=== PATIENT | female | born 1955 | race Caucasian/White ===

== ENCOUNTER 2016-11-18 08:21 | Day surgery (SDC) | payer BC ==
[2016-11-17 09:36] VITALS: BMI 29.2
[~2016-11-18 08:21] MED LIST: LACTATED RINGERS 1,000 ML IV SCH; LIDOCAINE 1% 20 ML VIAL (10MG/ML) FOR IV START INTRADERMA PRN
[2016-11-18 09:27] VITALS: RESP 16; TEMP 96.9
[2016-11-18] MEDS ORDERED: PROPOFOL 10 MG/ML 20 ML VIAL IV ONE (09:38)
--- NOTE | 2016-11-18 09:58 | P.PCN ---
Date of Procedure: 11/18/16 Procedure(s) Performed: BRIEF HISTORY: Patient is a 61-year-old pleasant white female, scheduled for an elective colonoscopy as a part of surveillance of long-standing history of ulcerative colitis diagnosed in 2004 and remains in clinical remission. PROCEDURE PERFORMED: Colonoscopy with biopsy. PREOPERATIVE DIAGNOSIS: Long-standing history of ulcerative colitis. IV sedation per Anesthesia. PROCEDURE: After informed consent was obtained, the patient, was brought into the endoscopy unit. IV sedation was administered by Anesthesia under continuous monitoring. Digital rectal examination was normal. Initially the Olympus CF- 160 flexible video colonoscope was then inserted in the rectum, gradually advanced into the cecum without any difficulty. Careful examination was performed as the scope was gradually being withdrawn. Ileocecal valve and the appendiceal orifice were visualized and appeared normal. Prep was excellent. Mucosa of the cecum, ascending colon, transverse colon, descending colon, sigmoid colon, and rectum appeared normal. Scattered sigmoid diverticulosis seen. Random biopsies were done from every 10 cm into well from the rectum to the cecum value for dysplasia. Retroflexion was performed in the rectum and no lesions were seen. The patient tolerated the procedure well. IMPRESSION: Normal-appearing colon from rectum to cecum with no evidence of colitis or colorectal neoplasia. Scattered sigmoidal reticulosis. RECOMMENDATIONS: Findings of this examination were discussed with the patient as well as a family. She was advised to follow with the biopsy results. If the biopsy does not show any evidence of dysplasia she can have a repeat colonoscopy in 2 years.
[2016-11-18 10:21] VITALS: BP 138/88; PULSE 77
== END 2016-11-18 10:39 | disposition home or self-care (01) ==
LOC: ORWHC2ENDO 08:21
PROVIDERS: ATTEND Internal Medicine Gastroenterology
DX: K51.90 Ulcerative colitis, unspecified, without complications (principal); K52.9 Noninfective gastroenteritis and colitis, unspecified; K57.30 Diverticulosis of large intestine without perforation or abscess without bleeding; I10 Essential (primary) hypertension; J44.9 Chronic obstructive pulmonary disease, unspecified; Z87.891 Personal history of nicotine dependence; M79.7 Fibromyalgia; Z79.1 Long term (current) use of non-steroidal anti-inflammatories (NSAID); Z79.899 Other long term (current) drug therapy; Z88.5 Allergy status to narcotic agent; Z88.0 Allergy status to penicillin; Z88.2 Allergy status to sulfonamides
CPT/HCPCS: 88305; 45380; J2704

== ENCOUNTER 2017-06-09 08:39 | Day surgery (SDC) | payer BC, OTHER ==
[2017-06-09 09:08] VITALS: TEMP 98
[2017-06-09] MEDS ORDERED: TRIAMCINOLONE ACETONIDE 40 MG/ML 1 ML VIAL INTRABURSA STA (09:18)
[2017-06-09 09:56] VITALS: RESP 16
[2017-06-09 10:51] VITALS: BP 136/74; PULSE 90
--- NOTE | 2017-06-09 13:57 | US ---
Ultrasound guided left Anaya's cyst aspiration and injection Date: 06/09/2017 History: 61-year-old female with swelling and pain, referred for Anaya cyst aspiration and injection. Procedure: 1. Ultrasound of the left popliteal fossa. 2. Aspiration followed by injection of Kenalog and lidocaine with ultrasound guidance. Technique: The procedure, risks, and alternatives, were discussed with the patient, who requested that marc gama. The consent form was signed, and teach-back occurred. The site/side of the procedure was marked wi th a line with participation by the patient. The accompanying paperwork was verified for consistency. A directed history and physical exam was performed prior to the procedure. Medication reconciliation was performed by ancillary personnel. A critical pause was performed with assisting personnel just p rior to the procedure and the patient's identity was confirmed using 2 identifiers. Imaging guidance was utilized to select the precise skin entry point just prior to the procedure. Targeted imaging shows a large 8.3 x 4.0 x 3.0 cm Anaya cyst. There is prominent thickened synovium a long the inferior portion of the cyst. The left popliteal fossa was prepped and draped in the usual sterile fashion and local 1% lidocaine a nesthesia was instilled. Under ultrasound guidance, an 18 gauge long needle was introduced into the Anaya's cyst. Aspiration y ielded 25 mL of clear, synovial fluid without difficulty. The cyst was seen to collapse completely wi th aspiration. However, residual thickened synovium remains. Subsequently, under ultrasound surveillance, 1 mL of Kenalog-40 was injected into the collapsed cyst followed by 3 mm of 1% lidocaine as the needle was withdrawn. The patient tolerated the procedure well. There were no immediate complications. After the procedure, the patient's condition was unchanged. Es timated blood loss was minimal. The patient was instructed on routine postprocedure precautions, incl uding monitoring for signs of infection. IMPRESSION: Successful ultrasound guided aspiration and steroid injection (40 mg Kenalog) of a complex 8.3 cm lef t Anaya cyst without complication. Following aspiration, residual thickened synovium remains around t he collapsed cyst. 25 mL of clear synovial fluid was removed.
== END 2017-06-09 10:35 | disposition home or self-care (01) ==
LOC: RADPROMAIN 08:39
PROVIDERS: ATTEND Orthopaedic Surgery
DX: M71.22 Synovial cyst of popliteal space [Baker], left knee (principal); M17.12 Unilateral primary osteoarthritis, left knee
CPT/HCPCS: 20611; J3301; 76942

== ENCOUNTER → 2019-07-20 | Outpatient (CLI) | payer OTHER | END | disposition home or self-care (01) | LOC: LABPAT 13:01 | PROVIDERS: ATTEND Orthopaedic Surgery Sports Medicine | DX: Z01.812 Encounter for preprocedural laboratory examination (principal) | CPT/HCPCS: 87070 ==

== ENCOUNTER 2019-08-02 10:23 | Observation (INO) | payer OTHER ==
[2019-07-31 16:01] VITALS: BMI 29.6
[~2019-08-02 10:23] MED LIST changes: +HYDROmorphone 0.5 MG/0.5 ML SYRINGE IVP PRN; -LACTATED RINGERS 1,000 ML IV SCH; -LIDOCAINE 1% 20 ML VIAL (10MG/ML) FOR IV START INTRADERMA PRN; +MIDAZOLAM 2 MG/2 ML VIAL IV PRN; +ONDANSETRON 4 MG/2 ML VIAL IVP ONE; +SCOPOLAMINE 1.5MG/72HR PATCH TRANSDERM ONE; +TRANEXAMIC ACID 1,000 MG in SODIUM CHLORIDE 0.9% 100 ML IVPB ONE
[2019-08-02] MEDS ORDERED: ONDANSETRON 4 MG/2 ML VIAL ONE (11:14)
[2019-08-02] MEDS ORDERED: ACETAMINOPHEN TAB 500 MG TAB ONE (11:14)
[2019-08-02] MEDS: LACTATED RINGERS 1,000 ML IV SCH (11:21)
[2019-08-02] MEDS: ONDANSETRON 4 MG/2 ML VIAL IVP ONE ×2 (11:28→16:36)
[2019-08-02] MEDS: DEXAMETHASONE SOD PHOSPHATE 10 MG/ML 1 ML VIAL IV ONE ×2 (11:28→16:37)
[2019-08-02] MEDS: GABAPENTIN 300 MG CAP PO ONE ×2 (11:29→16:36)
[2019-08-02] MEDS: ACETAMINOPHEN TAB 500 MG TAB PO ONE ×2 (11:29→16:36)
[2019-08-02] MEDS: MELOXICAM 7.5 MG TAB PO ONE ×2 (11:30→16:36)
--- NOTE | 2019-08-02 12:19 | P.ANPRN ---
Procedure Note - Anesthesia - Nerve Block Performed Left Adductor Canal Time Out Performed: Yes Date of Procedure: 08/02/19 Procedure Start Time: 11:51 Procedure Stop Time: 12:06 Location of Patient: PreOp Indication: Acute Post-Operative Pain, Requested by Surgeon (Dr Quiñonez) Sedation Type: Sedate with meaningful contact maintained Preparation: Sterile Prep, Sterile Dressing Position: Supine Catheter: Indwelling Needle Types: Pajunk Needle Gauge: 21 Ultrasound used to visualize needle placement: Yes Ultrasound used to observe medication spread: Yes Injectate: 0.5% Ropivacaine (see comment for volume) (20cc) Blood Aspirated: No Pain Paresthesia on Injection Noted: No Resistance on Injection: Normal Image Stored and Saved: Yes Events: Uneventful and Well Tolerated
[2019-08-02] MEDS ORDERED: MIDAZOLAM 2 MG/2 ML VIAL ONE (12:46)
[2019-08-02] MEDS ORDERED: fentaNYL (PF) 50 MCG/ML 2 ML AMP ONE (12:46)
[2019-08-02] MEDS ORDERED: PROPOFOL 10 MG/ML 20 ML VIAL IV ONE (12:46)
[2019-08-02] MEDS ORDERED: SODIUM CHLORIDE 0.9% 100 ML BAG ONE (12:46)
[2019-08-02] MEDS ORDERED: TRANEXAMIC ACID 1,000 MG/10 ML VIAL ONE (12:46)
[2019-08-02] MEDS ORDERED: ceFAZolin 3,000 MG in SODIUM CHLORIDE 0.9% IRRIGATIO 3,000 ML IRRIGATION ONE (12:49)
[2019-08-02] MEDS ORDERED: MAGNESIUM HYDROXIDE 2,400 MG/10 ML CUP PO PRN (12:54)
[2019-08-02] MEDS ORDERED: DIAZEPAM 5 MG TAB PO PRN (12:54)
[2019-08-02] MEDS ORDERED: NA PHOS,M-B/NA PHOS,DI-BA 133 ML ENEMA RECTAL PRN (12:54)
[2019-08-02] MEDS ORDERED: HYDROmorphone 0.5 MG/0.5 ML SYRINGE IVP PRN (12:54)
[2019-08-02] MEDS ORDERED: ONDANSETRON 4 MG/2 ML VIAL IVP PRN (12:54)
[2019-08-02] MEDS ORDERED: HYDROmorphone 1 MG/ML 1 ML SYRINGE IVP PRN (12:54)
[2019-08-02] MEDS ORDERED: HYDROcodone/APAP 5-325MG 1 EACH TAB PO PRN ×2 (12:54)
[2019-08-02] MEDS ORDERED: NALOXONE 0.4 MG/ML 1 ML VIAL IV PRN (12:54)
[2019-08-02] MEDS ORDERED: BISACODYL 10 MG SUPP RECTAL PRN (12:54)
[2019-08-02] MEDS ORDERED: hydrOXYzine PAMOATE 25 MG CAP PO PRN (12:54)
[2019-08-02] MEDS: ROPIVACAINE 246.25 MG, EPINEPHrine 0.5 MG, KETOROLAC 30 MG, cloNIDine HCL/PF 80 MCG, WA... MISCELLANE ONE ×10 (13:22→13:58)
[2019-08-02] MEDS ORDERED: ROPIVACAINE 0.2%-NS ON-Q PUMP 1,090 MG, EMPTY PAIN BALL 1 EACH MISCELLANE PRN (15:17)
--- NOTE | 2019-08-02 15:29 | XR ---
EXAMINATION TYPE: XR knee limited LT DATE OF EXAM: 08/02/2019 CLINICAL HISTORY: Postoperative evaluation Two views of the left knee are submitted. Identified are changes of total knee arthroplasty with fem oral and tibial components appearing well seated. Postsurgical soft tissue changes are noted. Align ment is anatomic.
[2019-08-02] MEDS ORDERED: FLUTICASONE 50MCG/SPRAY NASAL 16GM EA NOSTRIL PRN (18:22)
[2019-08-02] MEDS ORDERED: ALBUTEROL NEBULIZED 2.5 MG/3 ML INHALATION PRN (18:32)
[2019-08-02] MEDS ORDERED: MONTELUKAST 10 MG TAB PO SCH (21:00)
[2019-08-02] MEDS ORDERED: VENLAFAXINE HCL ER 150 MG CAP PO SCH (21:00)
[2019-08-02] MEDS ORDERED: ASPIRIN 325 MG TAB PO SCH (21:00)
[2019-08-02] MEDS ORDERED: SENNOSIDES-DOCUSATE SODIUM 1 EACH TAB PO SCH (21:00)
[2019-08-02] MEDS ORDERED: FOLIC ACID 1 MG TAB PO SCH (21:00)
[2019-08-02] MEDS: CALCIUM CARB-VIT D 500MG-200UN 1 EACH TAB PO SCH (21:23)
[2019-08-02] MEDS: MULTIVITAMINS, THERA 1 EACH TAB PO SCH (21:23)
[2019-08-02] MEDS: ASPIRIN 81 MG PO SCH (21:23)
[2019-08-02] MEDS: hydrALAZINE HCL 50 MG TAB PO SCH ×2 (21:23→22:37)
[2019-08-02] MEDS: SODIUM CHLORIDE 0.9% 1,000 ML IV SCH ×2 (21:24)
[2019-08-02] MEDS: valACYclovir HCL 1,000 MG TABLET PO SCH (21:25)
[2019-08-02] MEDS: LOSARTAN 50 MG TAB PO SCH (21:25)
[2019-08-02] MEDS: amLODIPine 5 MG TAB PO SCH (21:25)
--- NOTE | 2019-08-02 22:20 | P.CONS ---
History of Present Illness - Reason for Consult Consult date: 08/02/19 Medical management Requesting physician: Param Quiñonez - Chief Complaint Post left total knee arthroplasty, hypertension, hyperlipidemia, fibromyalg - History of Present Illness 63-year-old female one of my office patient with long-standing history of hypertension, fibromyalgia, severe osteoarthritis, seronegative rheumatoid arthritis and history of ulcerative colitis who has been suffering from severe arthritis of the left knee for the last 2 years with failure to conservative management, patient was seen orthopedic and after failure of injection and steroid along with physical therapy patient was referred for elective left total knee arthroplasty which was done today successfully with Dr. Quiñonez patient was admitted to the floor afterward she is hemodynamically stable, pain is under control, continue topical block. Review of Systems CONSTITUTIONAL: Well-developed no acute respiratory distress. EYES: No icterus sclerae, no conjunctivitis. EARS, NOSE, MOUTH, THROAT, and FACE: No sore throat, lymphadenopathy, carotid bruits or deformity. RESPIRATORY: No SOB cough or wheezes. CARDIOVASCULAR: No CP, Palpitation, PND, Orthopnea, or angina. GASTROINTESTINAL: No Abd pain, Nausea or vomiting, no Diarrhea or constipation, No GI Bleed, no distention or masses. GENITOURINARY: Negative for Hematuria or UTI, no kidney stones. INTEGUMENT/BREAST: Negative for any muscular injury with mild osteoarthritis, generalized arthralgia and myalgia... HEMATOLOGIC/LYMPHATIC: Negative for bleed or purpura. MUSCULOSKELTAL: Negative for Myalgia or arthralgia. Generalized arthralgia and myalgia. NEURLOGICAL: No LOC, Sz or syncope, blurred vision dizziness or abnormality.. BEHAVIORAL/PSYCH: Negative. ENDOCRINE: Negative. Past Medical History Past Medical History: Fibromyalgia, Hypertension, Osteoarthritis (OA), Respiratory Disorder, Skin Disorder Additional Past Medical History / Comment(s): hx ULCERATIVE COLITIS, hx HYPERACTIVE AIRWAY DISEASE, occular migraines, HERNIATED DISCS. rosacea, eczema, History of Any Multi-Drug Resistant Organisms: None Reported Past Surgical History: Orthopedic Surgery Additional Past Surgical History / Comment(s): CARPAL TUNNEL YESENIA, GANGLION CYST rt wrist , LEFT BUNIONECTOMY, arthoscopic left knee surgery, Bakers cyst drained left knee, resection of lower lip for bleeding hemangeoma. Past Anesthesia/Blood Transfusion Reactions: Motion Sickness, Postoperative Nausea & Vomiting (PONV) Past Psychological History: No Psychological Hx Reported Smoking Status: Former smoker Past Alcohol Use History: Occasional Additional Past Alcohol Use History / Comment(s): QUIT SMOKING 25 yrs ago, SMOKED LESS THAN 1 PPD., SMOKED 10-12 YEARS. Past Drug Use History: None Reported - Past Family History Mother Family Medical History: Cancer Additional Family Medical History / Comment(s): BREAST CANCER Medications and Allergies Home Medications Medication Instructions Recorded Confirmed Type Albuterol Inhaler (Mhu) [Ventolin 1 - 2 puff INHALATION Q6HR PRN 11/17/16 08/02/19 History Hfa Inhaler] Cholecalciferol [Vitamin D3] 1,000 unit PO DAILY 11/17/16 08/02/19 History Etodolac [Lodine] 400 mg PO BID 11/17/16 08/02/19 History Fluticasone Nasal [place] [Flonase 1 spray EA NOSTRIL DAILY PRN 11/17/16 08/02/19 History Nasal [place]] Folic Acid 2 mg PO HS 11/17/16 08/02/19 History Mesalamine [Lialda] 4.8 gm PO 1400 11/17/16 08/02/19 History Montelukast [Singulair] 10 mg PO HS 11/17/16 08/02/19 History Multivit with Calcium,Iron,Min 1 each PO DAILY 11/17/16 08/02/19 History [Women's Multivitamin] Venlafaxine HCl [Effexor XR] 150 mg PO HS 11/17/16 08/02/19 History hydrALAZINE HCL [Hydralazine HCl] 50 mg PO TID 11/17/16 08/02/19 History valACYclovir HCL [Valacyclovir] 1,000 mg PO DAILY 11/17/16 08/02/19 History Triamcinolone 0.025% Cream 1 applic TOPICAL DAILY 11/18/16 08/02/19 History [Kenalog 0.025% Cream] Calcium +D 1 tab PO BID 07/31/19 08/02/19 History amLODIPine BES/OLMESARTAN MED 1 tab PO QAM 07/31/19 08/02/19 History [Mary 5-40 MG] Methotrexate Inj 0.8 ml IJ FR 08/01/19 08/02/19 History Allergies Allergy/AdvReac Type Severity Reaction Status Date / Time Sulfa (Sulfonamide Allergy Severe Enlarged Verified 08/02/19 11:01 Antibiotics) Lymph Nodes, lethargy, fatigue, elevated wbc's meperidine [From Demerol] Allergy Unknown Itching Verified 08/02/19 11:01 Penicillins Allergy Unknown Unknown Verified 08/02/19 11:01 Childhood Physical Exam Vitals: Vital Signs Temp Pulse Pulse Pulse Resp BP BP 08/02/19 18:05 78 122/79 08/02/19 17:50 81 118/77 08/02/19 17:35 78 114/77 08/02/19 17:20 82 116/73 08/02/19 17:05 77 118/77 08/02/19 16:50 81 111/72 08/02/19 16:35 91 112/72 08/02/19 16:22 98.2 F 82 17 115/77 08/02/19 15:50 89 16 106/62 08/02/19 15:35 87 16 112/66 08/02/19 15:20 90 16 102/66 08/02/19 15:05 91 16 109/59 08/02/19 14:50 96.9 F L 95 16 107/72 08/02/19 12:10 72 18 131/72 08/02/19 11:18 97.4 F L 86 20 157/91 Pulse Ox 08/02/19 18:05 93 L 08/02/19 17:50 93 L 08/02/19 17:35 95 08/02/19 17:20 96 08/02/19 17:05 95 08/02/19 16:50 95 08/02/19 16:35 92 L 08/02/19 16:22 95 08/02/19 15:50 99 08/02/19 15:35 98 08/02/19 15:20 98 08/02/19 15:05 93 L 08/02/19 14:50 97 08/02/19 12:10 97 08/02/19 11:18 98 Intake and Output 08/02/19 08/02/19 08/02/19 06:59 14:59 22:59 Intake Total 851 50 Output Total 100 Balance 751 50 Intake: IV 851 50 Output: Estimated Blood Loss 100 Other: Weight 81.1 kg 81.1 kg General Appearance: Alert, cooperative, no distress, appears stated age. Neck HEENT: Supple, no lymphadenopathy, no thyroid enlargement, no carotid bruits. Lungs: Clear to auscultation without crackles or wheezes no rhonchi, no deformity. Chest Wall: Chest wall normal expansion with deep inspiration no tenderness and no deformity was found on exam, no costochondral pain or discomfort. Heart: Regular rate and rhythm, S1, S2 normal, no murmur, rub or gallop. Back: Symmetric, no curvature, ROM normal, no CVA tenderness. Abdomen: Soft, non-tender, bowel sounds active all four quadrants, no masses, no organomegaly. Extremities: Extremities normal, atraumatic, no cyanosis or edema, incision on the left knee discover with Ryne wrap at this point still have nerve block above the surgical site above the knee. Pulses: 2+ and symmetric. Skin: Skin color, texture, tugor normal, no rashes or lesions. Neurologic: Alert oriented x3 cranial nerves II through XII intact, no motor deficit, no abnormal balance or gait. Assessment and Plan Assessment: 1 post left total knee arthroplasty: Stable post surgery, continue to watch patient hemodynamic status, continue pain management and control, 2 asthma: Patient is doing well on Singulair and Ventolin resume both medication. 3 colitis: Most likely ulcerative colitis, patient has been on Lialda 4.8 g daily with no flareup lately. 4 severe arthritis mostly osteoarthritis and seronegative rheumatoid, patient has been on methotrexate injection 0.8 mL weekly which was held the week before surgery and for 1 week we'll resume medication continue folic acid with it. 5 hypertension: Continue hydralazine 50 mg 3 times a day along with amlodipine/olmesartan 5/40 mg daily blood pressure has been well controlled. 6 chronic depression: Has been on venlafaxine 150 mg at bedtime. 7 pain control: Patient has been on topical block along with hydrocodone as needed. 8 DVT prophylaxis: Knee-high YAMILEX hose, early mobilization and aspirin will be use post orthopedic surgery. 9 GI prophylaxis: Patient will be on Pepcid 20 mg daily. CODE STATUS: Full code. Dr. Quiñonez thank you much for the consult if I can be any further help to please let me know.
[2019-08-03] MEDS: HYDROmorphone 0.5 MG/0.5 ML SYRINGE IVP PRN ×2 (00:32→06:46)
[2019-08-03] MEDS: SODIUM CHLORIDE 0.9% 1,000 ML IV SCH (04:10)
[2019-08-03] MEDS: LACTATED RINGERS 1,000 ML IV SCH (06:46)
[2019-08-03 07:24] VITALS: BP 127/82; PULSE 91; RESP 16; TEMP 98.5
[2019-08-03] MEDS: hydrALAZINE HCL 50 MG TAB PO SCH (08:04)
[2019-08-03] MEDS: ASPIRIN 81 MG PO SCH (08:04)
[2019-08-03] MEDS: MULTIVITAMINS, THERA 1 EACH TAB PO SCH (08:04)
[2019-08-03] MEDS: LOSARTAN 50 MG TAB PO SCH (08:04)
[2019-08-03] MEDS: CALCIUM CARB-VIT D 500MG-200UN 1 EACH TAB PO SCH (08:04)
[2019-08-03] MEDS: amLODIPine 5 MG TAB PO SCH (08:04)
[2019-08-03] MEDS: valACYclovir HCL 1,000 MG TABLET PO SCH (08:07)
--- NOTE | 2019-08-03 08:29 | P.PN ---
Progress Note - Text Progress Note Date: 08/03/19 (6:30 AM) Patient was seen at bedside at 6:30 AM. Patient is postop day 1 from left total knee replacement with adductor canal catheter placed for pain . Ropivacaine 0.2% infusion running at 8 ml per hour. VAS score is 5/10. Patient denies side effects. Lower extremity sensation and motor function is intact. Patient has ambulated. Dressing clean dry and intact over catheter site
--- NOTE | 2019-08-03 08:35 | OP ---
OPERATIVE REPORT PROCEDURE: 08/02/2019. SURGEON: Param Quiñonez MD. ASPHALT DAUBER: Alysia Cornell. PREOPERATIVE DIAGNOSIS: Left knee osteoarthrosis. POSTOP DIAGNOSIS: Left knee osteoarthrosis. OPERATION: Operation left total knee arthroplasty. ANESTHESIA: Spinal sedation. ESTIMATED BLOOD LOSS: 100 mL. TOURNIQUET TIME: 51 minutes at 250 mmHg. COMPLICATIONS: None apparent. DRAINS: None. DISPOSITION: Postanesthesia care unit. INDICATIONS: Rebecca is a very pleasant 63-year-old female with longstanding history of left knee pain. History and physical examination are consist with advanced left knee osteoarthrosis. She has been through significant nonoperative management up to this point. Further treatment options were discussed and she decided to go for the left total knee arthroplasty. The risks of procedure were discussed with her in detail. These risks include, but are not limited to risk of infection, nerve damage, bleeding, pain, and a small risk of deep vein thrombosis which could lead to fatal pulmonary embolism. There is also risk of loosening of the implant which could require revision operation. The patient understands these risks. All of her questions were answered to her satisfaction. Appropriate informed consent was obtained. DESCRIPTION OF PROCEDURE: The patient identified in the preoperative holding area. Surgical sites marked by both the patient and myself. She was given 2 g of Ancef IV for prophylactic purposes. She was then transferred to the operative suite. She was placed supine on the operative table. A spinal anesthetic was then administered and dosed per the anesthesia without apparent complication. Examination under anesthesia was then performed. The patient was 2-3 degrees shy of full extension. She had 100 degrees of flexion. The medial collateral ligament, lateral collateral ligament posterior cruciate ligaments were stable. Tourniquet was then placed high on the left upper thigh well-padded in preparation for surgery. The patient's left lower extremity was then prepped and draped in usual sterile fashion. Standard surgical pause undertaken to ensure that we were operating the correct site and that appropriate preop antibiotics were given. All staff in the room in agreement we proceeded. The outlines of the patella marked surgical pen. A planned 12 cm vertical incision centered over the patella was marked surgical pen. Leg was exsanguinated with an Esmarch dressing. The knee was then flexed and tourniquet inflated to 250 mmHg. The total tourniquet time for the procedure was 51 minutes. Incision and incision were then made with a 10 blade scalpel. Dissection carried down sharply overlying fascia. Great care was taken to minimize the skin flaps. The knee was then exposed using a standard medial parapatellar approach. A small cuff of quadriceps tendon was then left for suturing. She was in a bit of valgus preoperatively. A very minimal medial release was then made. This was done just enough to place the retractors medially. The medial meniscus was then excised as well. The lateral meniscus was also released anteriorly. The leg was then externally rotated. The patella was everted. The knee was flexed. Retractors were then placed to protect the collateral ligaments. I then proceeded to remove the infrapatellar fat pad. This excised sharply tangentially with the fibers of the patellar tendon. I then proceeded to remove the peripheral osteophytes. This was done with a rongeur. I then proceeded with the distal femoral resection. She did have near full extension. A planned 9 mm resection was then done. The femoral canal was then entered in midline of the femur. Approximately 10 mm anterior to the origin of the posterior cruciate ligament. The alfredito was then advanced on the center of the femur and placed intramedullary. Based on the preoperative radiographs, the angle between the anatomic and mechanical axis of the femur was approximately 4-5 degrees. The valgus angle of this femoral cutting guide was then set at 4 degrees for the left knee. This femoral cutting guide was then advanced over the inserted intramedullary alfredito. This was seated firmly against the femur. I then, as mentioned, planned to take 9 mm off the distal femur. The cutting block was then secured onto the femur with pins. The jig was removed femoral cut was made through the slot of the block. The pins then removed this femoral cutting block was removed. The accuracy of the distal femoral cuts was checked with 2 flat bars. I then proceed with femoral sizing. Posterior referencing sizing guide was held firmly against the resected distal surface of the femur. Posterior condyles were resting on the posterior plane of the guide. The sizing stylus was then placed onto the anterior femur. The size was measured as a size 7. I then assessed for femoral rotation. The plan was for 3 degrees of external rotation. Three degrees of external rotation was placed onto the jig. These holes were then marked. I then confirmed the rotation by 3 separate methods. This done using the epicondylar axis as well as Whitesides line and posterior referencing. It was deemed that the external rotation was proper. I then went forward placing the femoral cutting block. This was placed over the previously placed pin holes. The Jose J wing was then placed on the anterior slots to ensure that we would not notch the anterior femur with the anterior femoral cut. I then proceed with the anterior femoral cut. This was flush with the anterior cortex of the femur. Posterior cuts were then made followed by the anterior chamfer cut, then the posterior chamfer cut. The cutting block was then removed for throughout the resection the collateral ligaments were protected with retractors. I then placed a trial size 7 femur. It was slightly wide mediolateral but fit flush with the distal end of the femur. The drill holes were then made. I then proceed with tibial cut. I planned for cruciate-retaining knee. The guide was placed in separate varus valgus and for slope. Height was set for approximate 2 mm resection from the lateral tibial plateau which was the lower side. Having the alignment and the amount of resection. The cutting block was then pinned to the proximal tibia. The alignment alfredito was removed. Proximal tibia was resected with a reciprocating saw. Again this was done with retractors protecting the collateral ligaments as well as the posterior cruciate ligament. I then proceeded to evaluate the flexion extension gaps. A 10 mm block was then placed. The flexion-extension gaps were equal. I then proceeded with resection of posterior osteophytes. She had very minimal posterior osteophytes. This was done using a curved osteotome. This resected the posterior osteophytes and posterior capsule stripping was done off the posterior aspect of the femur. The osteophytes were then removed. I then proceeded with resection of the patella. The thickness of the patella was measured using the caliper. The thickness was 22 mm. The thickness of the anticipated patellar dome was taken into account. Resection was then performed and confirmed to be equal in 4 quadrants using a caliper. Approximately 14 mm of bone remained after dissection. A 29 x 8 standard patellar trial was then placed. The holes were drilled. The trial was then placed. I then proceed with sizing tibial plate. A size D tibial plate fit very nicely. I then placed the trial femur the tibial tray and patellar button. A 10 mm trial tibial insert was also placed. The components fit very nicely. She had full extension and flexion. The extension and flexion gaps were equal and stable to both varus and valgus stress. The patella tracked appropriately. Tibial tray rotation was then marked with a Bovie. This was externally rotated properly. I then proceed with tibial preparation. First, the femoral holes and removed femoral component. The tibial tray was then set for proper external rotation as well as mediolateral placement of the tibia. It was then pinned into place. I proceeded to proceed with punching the keel. I then decided to proceed with cementing of all of our components. The knee was then was thoroughly irrigated with sterile saline solution via pulse lavage. The lateral geniculate artery was identified and cauterized. All blood was removed from the bone of the tibia femur and patella with pulse lavage. Then proceeded with cementing. PACKS: Two packs of antibiotic bone cement prepared on the back table by the certified surgical first assistant. I then proceed with cementing the tibia 1st. Cement was impacted in the keel as well as deeply seated into the bone. A second coat of cement was then placed. The tibia was then impacted into place. Excess cement was removed with Marco's and Joker's. I then proceed with cementing the femoral component. Femoral clone was also cemented using standard technique. Excess cement was removed. A 10 mm trial insert was then placed into the knee. Brought into full extension with a constant axial load placed until the cement had hardened. The patellar component was then cemented. This held firmly compressed with a compressive device until the cement had dried. When the cement had dried, the knee was taken out of extension. All excess cement was removed from around the prosthesis. I then trailed the knee with a 10 mm insert. The flexion-extension gaps were appropriate. The knee was stable. It came into full extension. I decided to go for the 10 mm cross-linked cruciate-retaining tibial insert. Polyethylene was then placed on the tibial tray and locked into place. The knee was then reduced. The knee was again further irrigated with sterile saline solution with antibiotic added. The tourniquet was then deflated. Total tourniquet time for the procedure was 51 minutes at 250 mmHg. Final components were Gallito Persona size 7 narrow cruciate-retaining femoral component, size D tibial tray, 10 mm medial congruent cruciate-retaining polyethylene insert, and a 29 x 8 mm patella. I then proceeded with closure. Again, the knee was thoroughly irrigated. The quadriceps tendon and medial retinaculum were reapproximated with #2 Ethibond suture. The extensor mechanism was then closed with a running #2 Quill suture. Subcutaneous tissues were then closed with 2-0 Vicryl interrupted suture. The skin was closed with a running 3-0 Quill suture. Dermabond was applied to the incision. Sterile compressive dressings were then applied. All sponge and needle counts were deemed correct prior to closure. The patient tolerated procedure without apparent complication. She was transferred recovery room in stable. CONDITION: End dictation thank you. MMODL / IJN: [id number] /
[2019-08-03] MEDS ORDERED: traMADol 50 MG TAB PO PRN ×2 (08:53)
[2019-08-03] MEDS ORDERED: MELOXICAM 7.5 MG TAB PO SCH (09:00)
[2019-08-03] MEDS ORDERED: CHOLECALCIFEROL 1,000 UNIT TAB PO SCH (09:00)
[2019-08-03 10:15] LABS: Basophils % (A) 0 %; Eosinophils # (A) 0.1 k/uL (0-0.7); Eosinophils % (A) 1 %; HCT 32.7 % (34.0-46.0); HGB 10.3 gm/dL (11.4-16.0); Lymphocytes # (A) 1.6 k/uL (1.0-4.8); Lymphocytes % (A) 19 %; MCH 30.9 pg (25.0-35.0); MCHC 31.6 g/dL (31.0-37.0); MCV 97.9 fL (80.0-100.0); Monocytes # (A) 0.6 k/uL (0-1.0); Monocytes % (A) 7 %; Neutrophils # (A) 6.1 k/uL (1.3-7.7); Neutrophils % (A) 71 %; Platelet Count 262 k/uL (150-450); RBC 3.34 m/uL (3.80-5.40); RDW 13.9 % (11.5-15.5); WBC 8.7 k/uL (3.8-10.6)
--- NOTE | 2019-08-03 12:09 | P.PN ---
Subjective Progress Note Date: 08/03/19 63-year-old female one of my office patient with long-standing history of hypertension, fibromyalgia, severe osteoarthritis, seronegative rheumatoid arthritis and history of ulcerative colitis who has been suffering from severe arthritis of the left knee for the last 2 years with failure to conservative m anagement, patient was seen orthopedic and after failure of injection and steroid along with physical therapy patient was referred for elective left total knee arthroplasty which was done today successfully with Dr. Quiñonez patient was admitted to the floor afterward she is hemodynamically stable, pain is under control, continue topical block. 08/02: Patient is seen today in follow-up. She has had no postop complications. She does state that she is very tired and did not sleep during the night. Pain to the left knee is controlled. Patient's been instructed to hold methotrexate for one week. Discharge plan is to return home. She has been afebrile, heart rate 91, blood pressure 127/82, pulse ox 96% on room air. Hemoglobin 10.3. Patient is medically cleared for discharge. Review of Systems CONSTITUTIONAL: Well-developed no acute respiratory distress. EYES: No icterus sclerae, no conjunctivitis. EARS, NOSE, MOUTH, THROAT, and FACE: No sore throat, lymphadenopathy, carotid bruits or deformity. RESPIRATORY: No SOB cough or wheezes. CARDIOVASCULAR: No CP, Palpitation, PND, Orthopnea, or angina. GASTROINTESTINAL: No Abd pain, Nausea or vomiting, no Diarrhea or constipation, No GI Bleed, no distention or masses. GENITOURINARY: Negative for Hematuria or UTI, no kidney stones. INTEGUMENT/BREAST: Negative for any muscular injury with mild osteoarthritis, generalized arthralgia and myalgia... HEMATOLOGIC/LYMPHATIC: Negative for bleed or purpura. MUSCULOSKELTAL: Negative for Myalgia or arthralgia. Generalized arthralgia and myalgia. NEURLOGICAL: No LOC, Sz or syncope, blurred vision dizziness or abnormality.. BEHAVIORAL/PSYCH: Negative. ENDOCRINE: Negative. Physical Examination General Appearance: Alert, cooperative, no distress, appears stated age. Neck HEENT: Supple, no lymphadenopathy, no thyroid enlargement, no carotid bruits. Lungs: Clear to auscultation without crackles or wheezes no rhonchi, no deform ity. Chest Wall: Chest wall normal expansion with deep inspiration no tenderness and no deformity was found on exam, no costochondral pain or discomfort. Heart: Regular rate and rhythm, S1, S2 normal, no murmur, rub or gallop. Back: Symmetric, no curvature, ROM normal, no CVA tenderness. Abdomen: Soft, non-tender, bowel sounds active all four quadrants, no masses, no organomegaly. Extremities: Extremities normal, atraumatic, no cyanosis or edema, incision on the left knee discover with Ryne wrap at this point still have nerve block above the surgical site above the knee. Pulses: 2+ and symmetric. Skin: Skin color, texture, tugor normal, no rashes or lesions. Neurologic: Alert oriented x3 cranial nerves II through XII intact, no motor deficit, no abnormal balance or gait. Assessment and Plan 1 post left total knee arthroplasty, postop day #1. Continue current pain management, PT and OT, incentive spirometry and aspirin for DVT prophylaxis. 2 asthma: Patient is doing well on Singulair and Ventolin resume both medication. 3 colitis: Most likely ulcerative colitis, patient has been on Lialda 4.8 g daily with no flareup lately. 4 severe arthritis mostly osteoarthritis and seronegative rheumatoid, patient has been on methotrexate injection 0.8 mL weekly which was held the week before surgery and for 1 week we'll resume medication continue folic acid with it. 5 hypertension: Continue hydralazine 50 mg 3 times a day along with amlodipine/olmesartan 5/40 mg daily blood pressure has been well controlled. 6 chronic depression: Has been on venlafaxine 150 mg at bedtime. 7 pain control: Patient has been on topical block along with hydrocodone as needed. 8 DVT prophylaxis: Knee-high YAMILEX hose, early mobilization and aspirin will be use post orthopedic surgery. 9 GI prophylaxis: Patient will be on Pepcid 20 mg daily. CODE STATUS: Full code. Discharge plan: Home with [facility] Impression and plan of care have been directed as dictated by the signing physician. Keisha Wise nurse practitioner acting as scribe for signing orlando hackett. Objective - Vital Signs Vital signs: Vital Signs Temp 98.5 F 08/03/19 07:00 Pulse 91 08/03/19 07:00 Resp 16 08/03/19 07:00 BP 127/82 08/03/19 07:00 Pulse Ox 96 08/03/19 07:00 Intake & Output 08/02/19 08/03/19 08/03/19 18:59 06:59 18:59 Intake Total 901 120 Output Total 100 Balance 801 120 Weight 81.1 kg Intake: IV 901 Oral 120 Output: Estimated Blood Loss 100 Other: Voiding Method Toilet # Voids 2 - Labs CBC & Chem 7: 08/03/19 08:58
--- NOTE | 2019-08-03 12:35 | P.DS ---
Providers Date of admission: 08/03/19 08:17 Expected date of discharge: 08/03/19 Attending physician: Param Quiñonez Consults: 08/02/19 12:54 Consult Physician Routine Consulting Provider: Jaiden Saunders Reason/Comments: medical management Do you want consulting provider notified?: Yes Primary care physician: Jaiden Saunders - Discharge Diagnosis(es) (1) Osteoarthritis of left knee Current Visit: Yes Status: Acute (2) S/P total knee arthroplasty Current Visit: Yes Status: Acute Hospital Course: This is a 63-year-old female with known history of degenerative arthritis of the left knee. The patient presents for evaluation. After discussion and consideration patient elects to proceed with total knee arthroplasty. The patient is seen preoperatively by Dr. Quiñonez and medically cleared for surgery by their primary care physician. Patient is admitted to [facility] on 08/02/2019 for total knee arthroplasty. The procedures performed without complication or sequelae. The patient is doing well postoperatively. Labs and vital signs are stable on day of discharge. On day of discharge patient's knee incision is healing well. There is minimal erythema. There is no drainage noted at this time. There is minimal soft tissue swelling to the knee. Patient has full foot and ankle motion without difficulty or pain. Calf is soft and nontender to palpation. Neurovascular status to the left lower extremity is intact. Patient is discharged home in good condition. Opioid start talking form is reviewed and signed at patient bedside. Please see med rec for accurate list of home medications. Plan - Discharge Summary Discharge Rx Participant: Yes New Discharge Prescriptions: New Aspirin [Adult Low Dose Aspirin EC] 81 mg PO BID 30 Days #60 tablet.dr Erwin [Senokot] 2 tab PO DAILY PRN #60 tablet PRN Reason: Constipation traMADol HCl [Ultram] 1 - 2 tab PO Q6H PRN #45 tab PRN Reason: Pain Continue Fluticasone Nasal [place] [Flonase Nasal [place]] 1 spray EA NOSTRIL DAILY PRN PRN Reason: Sinus Symptoms Cholecalciferol [Vitamin D3 (25 Mcg = 1000 Iu)] 1,000 unit PO DAILY Albuterol Inhaler (Mhu) [Ventolin Hfa Inhaler (Mhu)] 1 - 2 puff INHALATION Q6HR PRN PRN Reason: Shortness Of Breath valACYclovir HCL [Valacyclovir] 1,000 mg PO DAILY Montelukast [Singulair] 10 mg PO HS Folic Acid 2 mg PO HS Etodolac [Lodine] 400 mg PO BID hydrALAZINE HCL 50 mg PO TID Venlafaxine HCl [Effexor XR] 150 mg PO HS Multivit with Calcium,Iron,Min [Women's Multivitamin] 1 each PO DAILY Mesalamine [Lialda] 4.8 gm PO 1400 Triamcinolone 0.025% Cream [Kenalog 0.025% Cream] 1 applic TOPICAL DAILY amLODIPine BES/OLMESARTAN MED [Mary 5-40 MG] 1 tab PO QAM Calcium +D 1 tab PO BID Methotrexate Inj 0.8 ml IJ FR #0 Discharge Medication List Albuterol Inhaler (Mhu) [Ventolin Hfa Inhaler (Mhu)] 1 - 2 puff INHALATION Q6HR PRN 11/17/16 [History] Cholecalciferol [Vitamin D3 (25 Mcg = 1000 Iu)] 1,000 unit PO DAILY 11/17/16 [History] Etodolac [Lodine] 400 mg PO BID 11/17/16 [History] Fluticasone Nasal [place] [Flonase Nasal [place]] 1 spray EA NOSTRIL DAILY PRN 11/17/16 [History] Folic Acid 2 mg PO HS 11/17/16 [History] Mesalamine [Lialda] 4.8 gm PO 1400 11/17/16 [History] Montelukast [Singulair] 10 mg PO HS 11/17/16 [History] Multivit with Calcium,Iron,Min [Women's Multivitamin] 1 each PO DAILY 11/17/16 [History] Venlafaxine HCl [Effexor XR] 150 mg PO HS 11/17/16 [History] hydrALAZINE HCL 50 mg PO TID 11/17/16 [History] valACYclovir HCL [Valacyclovir] 1,000 mg PO DAILY 11/17/16 [History] Triamcinolone 0.025% Cream [Kenalog 0.025% Cream] 1 applic TOPICAL DAILY 11/18/16 [History] Calcium +D 1 tab PO BID 07/31/19 [History] amLODIPine BES/OLMESARTAN MED [Mary 5-40 MG] 1 tab PO QAM 07/31/19 [History] Aspirin [Adult Low Dose Aspirin EC] 81 mg PO BID 30 Days #60 tablet. 08/03/19 [Rx] Methotrexate Inj 0.8 ml IJ FR #0 08/03/19 [Rx] Sennosides [Senokot] 2 tab PO DAILY PRN #60 tablet 08/03/19 [Rx] traMADol HCl [Ultram] 1 - 2 tab PO Q6H PRN #45 tab 08/03/19 [Rx] Follow up Appointment(s)/Referral(s): Jaiden Saunders MD [Primary Care Provider] - 08/07/19 11:00 am (Your appointment will be with the SUPERVISOR FRAME ASSEMBLY) [facility], [NON-STAFF] - Param Quiñonez MD [STAFF PHYSICIAN] - 08/09/19 3:00 pm Patient Instructions/Handouts: *Surgery [facility] - On-Q Pain Pump Discharge Instructions, Knee Replacement (DC) Activity/Diet/Wound Care/Special Instructions: Weightbearing as tolerated with a walker. Daily dressing changes, keep incision clean and dry. May shower in 24-48 hrs if no drainage from incision. Recommend use of compression stockings daily until follow up to help prevent swelling and blood clots. May remove at night before sleeping. Please call [facility] with questions or concerns [phone]. Discharge Disposition: HOME WITH HOME HEALTH SERVICES
[2019-08-03] MEDS ORDERED: BALSALAZIDE DISODIUM 750 MG CAPSULE PO SCH (16:00)
== END 2019-08-03 13:15 | disposition home health service (06) ==
LOC: OR 10:23 → 4SSUR 14:37 → OR 08-03 08:17
PROVIDERS: ADMIT Orthopaedic Surgery Sports Medicine; ATTEND Orthopaedic Surgery Sports Medicine
DX: M17.12 Unilateral primary osteoarthritis, left knee (principal); M21.062 Valgus deformity, not elsewhere classified, left knee; M25.762 Osteophyte, left knee; Z87.891 Personal history of nicotine dependence; I10 Essential (primary) hypertension; E78.5 Hyperlipidemia, unspecified; M79.7 Fibromyalgia; L71.9 Rosacea, unspecified; L30.9 Dermatitis, unspecified; R63.5 Abnormal weight gain; M06.00 Rheumatoid arthritis without rheumatoid factor, unspecified site; G43.809 Other migraine, not intractable, without status migrainosus; Z80.3 Family history of malignant neoplasm of breast; J45.909 Unspecified asthma, uncomplicated; K51.90 Ulcerative colitis, unspecified, without complications; F32.9 Major depressive disorder, single episode, unspecified; Z87.19 Personal history of other diseases of the digestive system; L98.9 Disorder of the skin and subcutaneous tissue, unspecified; Z98.890 Other specified postprocedural states; Z83.3 Family history of diabetes mellitus; Z82.49 Family history of ischemic heart disease and other diseases of the circulatory system; I11.9 Hypertensive heart disease without heart failure; Z79.899 Other long term (current) drug therapy; Z88.5 Allergy status to narcotic agent; Z88.0 Allergy status to penicillin; Z88.2 Allergy status to sulfonamides
CPT/HCPCS: 27447; 97110; 97161; 64448; 76942; 85025; 88300; 73560; G0378; C1776; J2250; J0171; J1100; J0690 ×3; J2405; J3010; J1885; J2795 ×2; J2704; J0735; J1170 ×2

== ENCOUNTER 2022-12-11 13:47 | Day surgery (SDC) | payer OTHER ==
[2022-12-10 10:19] VITALS: BMI 30.9
[~2022-12-11 13:47] MED LIST changes: -HYDROmorphone 0.5 MG/0.5 ML SYRINGE IVP PRN; +LACTATED RINGERS 1,000 ML IV SCH; -MIDAZOLAM 2 MG/2 ML VIAL IV PRN; -ONDANSETRON 4 MG/2 ML VIAL IVP ONE; -SCOPOLAMINE 1.5MG/72HR PATCH TRANSDERM ONE; -TRANEXAMIC ACID 1,000 MG in SODIUM CHLORIDE 0.9% 100 ML IVPB ONE
[2022-12-11 14:53] VITALS: TEMP 98
[2022-12-11] MEDS ORDERED: PROPOFOL 10 MG/ML 20 ML VIAL IV ONE (16:51)
--- NOTE | 2022-12-11 17:06 | P.PCN ---
Date of Procedure: 12/11/22 Procedure(s) Performed: BRIEF HISTORY: Patient is a 66-year-old pleasant female scheduled for an elective colonoscopy as a part of surveillance of long-standing history of ulcerative colitis diagnosed in 2004. She is in clinical remission. PROCEDURE PERFORMED: Colonoscopy with random biopsy. PREOPERATIVE DIAGNOSIS: Long-standing history of ulcerative colitis. IV sedation per Anesthesia. PROCEDURE: After informed consent was obtained, the patient, was brought into the endoscopy unit. IV sedation was administered by Anesthesia under continuous monitoring. Digital rectal examination was normal. Initially the Olympus CF-160 flexible video colonoscope was then inserted in the rectum, gradually advanced into the cecum without any difficulty. Careful examination was performed as the scope was gradually being withdrawn. Ileocecal valve and the appendiceal orifice were visualized and appeared normal. Prep was excellent. Mucosa of the cecum, ascending colon, transverse colon, descending colon, sigmoid colon, and rectum appeared normal. Biopsies were done from cecum to rectum at every 10 cm into well. Scattered sigmoid diverticulosis seen. Retroflexion was performed in the rectum and no lesions were seen. The patient tolerated the procedure well. IMPRESSION: Normal-appearing colon from rectum to cecum no evidence of active colitis or colorectal neoplasia . RECOMMENDATIONS: Findings of this examination were discussed with the patient as well as a family. She was advised to follow with the biopsy sites. If the biopsy does not show any evidence of dysplasia, she can have a repeat colonoscopy in 2 years..
[2022-12-11 17:23] VITALS: RESP 16
[2022-12-11 17:44] VITALS: BP 151/83; PULSE 89
== END 2022-12-11 17:47 | disposition home or self-care (01) ==
LOC: ORWHC2ENDO 13:47
PROVIDERS: ATTEND Internal Medicine Gastroenterology
DX: K63.5 Polyp of colon (principal); K51.90 Ulcerative colitis, unspecified, without complications; I10 Essential (primary) hypertension; I20.9 Angina pectoris, unspecified; Z88.2 Allergy status to sulfonamides; Z88.0 Allergy status to penicillin; Z79.899 Other long term (current) drug therapy
CPT/HCPCS: 88305; 45380; J2704

== ENCOUNTER → 2023-10-28 | Outpatient (CLI) | payer MEDICARE ==
--- NOTE | 2023-10-31 15:18 | MM ---
Reason for Exam: Screening (asymptomatic). Last mammogram was performed 1 year(s) and 8 month(s) ago. Patient History: Menarche at age 14. Patient has no children. Postmenopausal. Patient used Estrogen for 3 years. Patient used Progesterone for 3 years. Excisional Biopsy on the Right side. Mother had breast cancer, age 79. Risk Values: Vero 5 year model risk: 3.9%. NCI Lifetime model risk: 13.0%. Prior Study Comparison: 01/29/2004 Left Special View Mammogram, [facility] WITH [facility]. 09/21/2019 Bilateral MG screening mammo w CAD - 2, Unknown. 02/17/2022 Bilateral MG screening mammo w CAD - 2, Unknown. Tissue Density: The breasts are heterogeneously dense, which may obscure small masses. Findings: Analyzed By CAD. The pattern is symmetrical. There is a coarse calcification within the left breast. Smaller coarse calcifications within the left breast. Some punctate calcifications are present bilaterally. No suspicious groups of microcalcifications, spiculated or lobular masses, architectural distortion or other secondary signs of malignancy are mammographically apparent. Overall Assessment: Benign, BI-RAD 2 Management: Screening Mammogram of both breasts in 1 year. A negative mammogram report should not preclude additional follow up of suspicious palpable abnormalities. Patient should continue monthly self breast exam. A clinical breast exam by your physician is recommended on an annual basis and results should be correlated with mammographic findings. Note on Vero scores and lifetime risk: 1. A Vero score greater than 3% is considered moderate risk. If this is the case, consider specialist referral to assess eligibility for a risk reducing agent. 2. If overall lifetime risk for the development of breast cancer is 20% or higher, the patient may qualify for future screening with alternating mammogram and breast MRI. [facility], , 10/31/2023 3:15 PM. Electronically signed and approved by: Connor Petersen D.O. Radiologis
--- NOTE | 2023-11-08 21:39 | BD ---
EXAMINATION TYPE: Axial Bone Density DATE OF EXAM: 10/28/2023 CLINICAL HISTORY: 68 years old Female. ICD-10 CODE: M81.0 MENOPAUSAL Height: 61.7 Weight: 174.3 FRAX RISK QUESTIONS: Alcohol (3 or more units per day): no Family History (Parent hip fracture): no Glucocorticoids (More than 3mos): no (Ex: prednisone, prednisolone, methylprednisolone, dexamethasone, and hydrocortisone). History of Fracture in Adulthood: no Secondary Osteoporosis: 1. Type 1 Diabetes: no 2. Hyperthyroidism: no 3. Menopause before 45: yes 4. Malnutrition: no 5. Chronic liver disease: no Rheumatoid Arthritis: no Current Tobacco Use: no RISK FACTORS HISTORY OF: Hip Fracture (Right/Left): no Spine Fracture: no History of Wrist Fracture: no Surgery to Spine/Hip(right/left)/Wrist (right/left): no MEDICATIONS: Thyroid Medications: no Osteoporosis Medications: no EXAM MEASUREMENTS: Bone mineral densitometry was performed using the [employer] System. Bone mineral density as measured about the Lumbar spine is: ----- L1-L4(G/cm2): 1.249 T Score Values are as follows: ----- L1: -0.3 ----- L2: 0.0 ----- L3: 1.0 ----- L4: 1.2 ----- L1-L4: 0.6 Z Score 0.8Values are as follows: ----- L1: 0.8 ----- L2: 1.2 ----- L3: 2.1 ----- L4: 2.4 ----- L1-L4: 1.7 Baseline Study Bone mineral density about the R hip (g/cm2): 0.987 Bone mineral density about the L hip (g/cm2): 1.091 T Score values are as follows: -----R Neck: -0.5 -----L Neck: 0.8 -----R Total: -0.25 -----L Total: 0.7 Z Score values are as follows: -----R Neck: 0.8 -----L Neck: 2.0 -----R Total: 0.8 -----L Total: 1.6 Baseline Study FRAX%s: The graph provided illustrates a 7.2% chance for a major osteoporotic fx and a 0.4% chance fo r the hips probability for fx in 10 years time. IMPRESSION: Normal (Values between +1 and -1 indicate normal bone mass). Consider repeating this study in 5 year s or sooner if there is some new clinical indication. NOTE: T-SCORE=SD OF THE YOUNG ADULT MEAN. [facility], , 11/08/2023 9:37 PM
== END | disposition home or self-care (01) ==
LOC: RADMAMWWP 13:00
PROVIDERS: ATTEND Internal Medicine Geriatric Medicine
DX: R92.8 Other abnormal and inconclusive findings on diagnostic imaging of breast
CPT/HCPCS: 77063; 77067; 77080